=== PATIENT | female | born 1995 | race Caucasian/White ===

== ENCOUNTER 2018-05-09 12:10 | Outpatient (REF) | payer MEDICAID, SELFPAY ==
[2018-05-09 12:39] LABS: Absolute Basophil Count 0.03 k/cumm (0.0-0.2); Absolute Eosinophil Count 0.05 k/cumm (0.0-0.7); Absolute Lymphocyte Count 1.13 k/cumm (1.2-3.4); Absolute Monocyte Count 0.33 k/cumm (0.11-0.7); Absolute Neutrophil Count 2.98 k/cumm (1.2-6.7); Basophils % 0.7; Eosinophils % 1.1; HCT 44.4 % (36.0-46.0); HGB 14.5 g/dL (12.0-15.5); Mean Corp. HGB Concentration 32.7 g/dL (32.0-36.0); Mean Corpuscular Hemoglobin 29.8 pg (27.0-33.0); Mean Corpuscular Volume 91.2 fL (80-95); Mean Platelet Volume 10.5 fL (8.0-11.0); Monocytes % 7.3; Neutrophils % 65.9; Platelet Count 288 x1000/uL (130-400); RBC 4.87 m/cumm (4.00-5.20); RBC Distribution Width 13.1 % (11.7-14.6); White Blood Cell Count 4.52 k/cumm (4.4-10.8)
[2018-05-09 12:57] LABS: ALT 15 U/L (12-78); AST 14 U/L (15-37); Albumin 4.3 g/dL (3.4-5.0); Alkaline Phosphatase 67 U/L (46-116); Anion Gap 10.4 mmol/L (3-11); BUN 10 mg/dL (7-18); Bilirubin, Total 0.4 mg/dL (0.2-1.0); C-Reactive Protein 0.35 mg/dL (0.0-0.3); CO2 28.6 mmol/L (21.0-32.0); CREATININE 0.67 mg/dL (0.55-1.02); Calcium 9.5 mg/dL (8.5-10.1); Chloride 100 mmol/L (98-107); Glucose 92 mg/dL (70-100); Sodium 139 mmol/L (136-145); TSH (W/Ref FT4) 0.93 uIU/mL (0.358-3.74)
[2018-05-09 13:40] LABS: ESR 9 MM/HR (0-20)
== END 2018-05-09 12:30 ==
LOC: NCHCN 12:10
PROVIDERS: PCP Nurse Practitioner Family; Visit Provider Nurse Practitioner
DX: R63.4 Abnormal weight loss (principal)
CPT/HCPCS: 80053; 85652; 84443; 85025; 86140

== ENCOUNTER 2019-05-30 18:15 | Outpatient (REF) | payer MEDICAID, SELFPAY ==
[2019-05-30 21:34] LABS: Mono Screening Negative (Negative)
[2019-05-30 21:35] LABS: Abs Immature Grans 0.02 k/cumm (0.0-0.09); Absolute Basophil Count 0.04 k/cumm (0.0-0.2); Absolute Eosinophil Count 0.08 k/cumm (0.0-0.7); Absolute Lymphocyte Count 1.76 k/cumm (1.2-3.4); Absolute Monocyte Count 0.41 k/cumm (0.11-0.7); Absolute Neutrophil Count 4.42 k/cumm (1.2-6.7); Basophils % 0.6; Eosinophils % 1.2; HCT 40.8 % (36.0-46.0); HGB 13.7 g/dL (12.0-15.5); Immature Grans % 0.3; Lymphocytes % 26.2; Mean Corp. HGB Concentration 33.6 g/dL (32.0-36.0); Mean Corpuscular Hemoglobin 30.6 pg (27.0-33.0); Mean Corpuscular Volume 91.1 fL (80-95); Mean Platelet Volume 10.7 fL (8.0-11.0); Monocytes % 6.1; Neutrophils % 65.6; Platelet Count 302 x1000/uL (130-400); RBC 4.48 m/cumm (4.00-5.20); RBC Distribution Width 12.8 % (11.7-14.6); White Blood Cell Count 6.73 k/cumm (4.4-10.8)
[2019-05-30 21:53] LABS: ALT 13 U/L (14-59); AST 14 U/L (15-37); Albumin 4.4 g/dL (3.4-5.0); Alkaline Phosphatase 62 U/L (46-116); Anion Gap 10.8 mmol/L (3-11); BUN 10 mg/dL (7-18); Bilirubin, Total 0.3 mg/dL (0.2-1.0); CO2 25.2 mmol/L (21.0-32.0); CREATININE 0.65 mg/dL (0.55-1.02); Calcium 9.1 mg/dL (8.5-10.1); Chloride 104 mmol/L (98-107); Glucose 85 mg/dL (70-100); Potassium 3.5 mmol/L (3.5-5.1); Sodium 140 mmol/L (136-145); Total Protein 8.2 g/dL (6.4-8.2)
== END 2019-05-30 18:35 ==
LOC: NCHCN 18:15
PROVIDERS: PCP Nurse Practitioner Family; Visit Provider Nurse Practitioner Family
DX: R59.9 Enlarged lymph nodes, unspecified (principal)
CPT/HCPCS: 80053; 85025; 86308

== ENCOUNTER 2020-01-15 13:15 | Outpatient (REF) | payer MEDICAID, SELFPAY ==
[2020-01-15 22:00] LABS: HCT 41.8 % (36.0-46.0); HGB 13.8 g/dL (12.0-15.5)
[2020-01-15 22:22] LABS: TSH 1.05 uIU/mL (0.36-3.74)
== END 2020-01-15 13:35 ==
LOC: NCHCN 13:15
PROVIDERS: PCP Nurse Practitioner Family; Visit Provider Physician Assistant
DX: R63.4 Abnormal weight loss (principal); K30 Functional dyspepsia
CPT/HCPCS: 84439; 84443; 85014; 85018

== ENCOUNTER 2020-04-30 20:51 | Outpatient (REF) | payer MEDICAID, SELFPAY | END 2020-04-30 21:11 | LOC: NCHCN 20:51 | PROVIDERS: PCP Nurse Practitioner Family; Visit Provider Family Medicine | DX: R30.0 Dysuria (principal) | CPT/HCPCS: 87086 ==

== ENCOUNTER 2021-05-03 14:46 | Outpatient (REF) | payer MEDICAID, SELFPAY ==
[2021-05-05 11:33] LABS: COVID-19 RT-PCR UVMMC Result Negative (Negative)
== END 2021-05-03 14:47 | disposition home or self-care (01) ==
LOC: LBN 14:46
PROVIDERS: Visit Provider Physician Assistant Medical
DX: Z20.822 Contact with and (suspected) exposure to COVID-19 (principal); J06.9 Acute upper respiratory infection, unspecified
CPT/HCPCS: U0003

== ENCOUNTER 2024-10-22 12:22 | Outpatient (REF) | payer BC, SELFPAY ==
--- NOTE | 2024-10-22 16:40 | SKI_PTH ---
PATIENT: Leigh Jurado LOC: N U#:[id number] AGE/SX: 28/F ROOM: RE10/22/[address]: Madison Torres NP : 1995 BED: DIS: 10/22/2024 SPEC #: [id number] RECD: 10/23/24 12:49 STATUS: SHARI REHeron #: [id number] REN: 10/22/24 16:[address]: Madison Torres DEPT: Surgical Specimen RECD BY: Maliha Fraser Tissues: 1 - SKIN BIOPSY(SHAVE/PUNCH) Procedures: SKIN LEVEL 4 Comments: [id number]
== END 2024-10-22 12:23 | disposition home or self-care (01) ==
LOC: LBN 12:22
PROVIDERS: PCP Nurse Practitioner Family; Visit Provider Nurse Practitioner Family
DX: D22.9 Melanocytic nevi, unspecified (principal)
CPT/HCPCS: 88305